=== PATIENT | female | born 1970 | race Caucasian/White ===

== ENCOUNTER → 2017-08-04 | Day surgery (SDC) | payer OTHER ==
[~2017-08-04] VITALS: Ht 167.6 cm; Wt 68.0 kg
[~2017-08-04] MED LIST: BACTRIM DS TAB1 EACH PO; FLOMAX0.4 M1 PO; IBUPROFEN800 M1 PO; LOSARTAN POTASS50 M1 PO; PERCOCET 5-3251 EACH PO; PROMETHAZINE HC25 M3 PO; PYRIDIUM200 M1 PO; ZOFRAN ODT4 M1 SL
--- NOTE | 2017-08-04 08:19 | ED GI/GU/ABDOMINAL COMPLAINT ---
History of Present Illness General Chief Complaint: Abdominal Pain/Flank Pain Stated Complaint: FLANK PAIN, REDUCED URINE OUTPUT Source: patient Exam Limitations: no limitations Vital Signs & Intake/Output Vital Signs & Intake/Output Vital Signs Date Time Temp Pulse Resp B/P B/P Pulse O2 O2 Flow FiO2 Mean Ox Delivery Rate 08/04 1307 98.7 85 16 116/65 100 Room Air 08/04 1049 98.3 62 19 137/68 97 Room Air 08/04 0807 98.2 58 20 169/108 98 Room Air Allergies Coded Allergies: Penicillins (Severe, CAN'T BREATHE 03/21/17) Reconcile Medications Ibuprofen 800 MG TABLET 1 TAB PO TID pain Losartan Potassium 50 MG TABLET 1 TAB PO DAILY HEART (Reported) Ondansetron (Zofran Odt) 4 MG TAB.RAPDIS 1 TAB SL TID nausea Oxycodone HCl/Acetaminophen (Percocet 5-325 MG Tablet) 5 MG-325 MG TABLET 1-2 TAB PO Q6P PRN pain Promethazine HCl 25 MG TABLET 1 TAB PO Q6P PRN nausea Tamsulosin HCl (Flomax) 0.4 MG CAP.ER.24H 1 CAP PO DAILY kindey stone Triage Note: PT TO ED C/O RIGHT FLANK PAIN SINCE YESTERDAY. C/O DECREASED URINARY OUTPUT WITH URINARY URGENCY AND PRESSURE. Triage Nurses Notes Reviewed? yes ? n Is pt currently ? No Onset: Abrupt Duration: hour(s):, better Quality/Severity: moderate, sharpness, severe Location: right flank No Modifying Factors: none HPI: 47-year-old female comes into the emergency room for further evaluation of sudden onset right-sided flank pain that began this morning that woke her up. She's had some pain and cramping in her lower right groin region. She denies any fever chills vomiting. She has history of urinary infections also reports that she knows she has kidney stones but has not had any issues with them. Nothing seems to make the symptoms better. She comes in for further evaluation. Past History Travel History Traveled to [place] past 21 day No Medical History Any Pertinent Medical History? 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 No Review of Systems Review of Systems Constitutional: Reports: no symptoms. EENTM: Reports: no symptoms. Respiratory: Reports: no symptoms. Cardiovascular: Reports: no symptoms. GI: Reports: no symptoms. Genitourinary: Reports: see HPI. Musculoskeletal: Reports: see HPI. Skin: Reports: no symptoms. Neurological/Psychological: Reports: no symptoms. Hematologic/Endocrine: Reports: no symptoms. Immunologic/Allergic: Reports: no symptoms. All Other Systems: Reviewed and Negative Physical Exam Physical Exam General Appearance: well developed/nourished, alert, awake Head: atraumatic, normal appearance Eyes: Bilateral: normal appearance. Ears, Nose, Throat, Mouth: hearing grossly normal, moist mucous membrane Neck: normal inspection Respiratory: normal breath sounds, no respiratory distress Cardiovascular: regular rate/rhythm Gastrointestinal: soft Back: normal inspection Extremities: normal range of motion Neurologic/Psych: awake, alert, oriented x 3, normal gait Skin: intact, normal color Core Measures ACS in differential dx? No Sepsis Present: No Sepsis Focused Exam Completed? No Progress Differential Diagnosis: appendicitis, cholecystitis, diverticulitis, ectopic , kidney stone, ovarian cyst, ovarian torsion, UTI/pyelo Plan of Care: Orders Procedure Date/time Status EKG 08/04 1031 Active URINE 08/04 08 Complete URINALYSIS 08/04 0819 Complete COMPREHENSIVE METABOLIC PANEL 08/04 08 Complete CBC WITHOUT DIFFERENTIAL 08/04 08 Complete Laboratory Tests 08/04/17 0832: Urine Color YEL, Urine Clarity CLEAR, Urine pH 7.0, Ur Specific [place] 1.010, Urine Protein NEG, Urine Ketones NEG, Urine Nitrite NEG, Urine Bilirubin NEG, Urine Urobilinogen 0.2, Ur Leukocyte Esterase NEG, Ur Microscopic SEDIMENT EXAMINED, Urine RBC 3-5, Urine WBC 1-3 H, Ur Epithelial Cells FEW, Urine Bacteria RARE H, Urine Hemoglobin SMALL H, Urine Glucose NEG, Urine Test NEGATIVE 08/04/17 0830: Anion Gap 11, Estimated GFR > 60, BUN/Creatinine Ratio 15.7, Glucose 92, Calcium 9.4, Total Bilirubin 0.9, AST 19, ALT 20, Alkaline Phosphatase 47, Total Protein 7.1, Albumin 4.5, Globulin 2.6, Albumin/Globulin Ratio 1.7, CBC w Diff NO MAN DIFF REQ, RBC 4.59, MCV 86.9, MCH 29.4, MCHC 33.9, RDW 14.2, MPV 7.8, Gran % 66.0, Lymphocytes % 26.9, Monocytes % 4.1, Eosinophils % 2.3, Basophils % 0.7, Absolute Granulocytes 5.3, Absolute Lymphocytes 2.2, Absolute Monocytes 0.3, Absolute Eosinophils 0.2, Absolute Basophils 0.1 Diagnostic Imaging: Viewed by Me: CT Scan. Discussed w/RAD: CT Scan. Radiology Impression: PATIENT: JEZ WRIGHT PRESENT AGE: 47 PATIENT ACCOUNT NO: [id number] : 72 LOCATION: [facility] ORDERING PHYSICIAN: Vance MORALES SERVICE DATE: 08/04/17 EXAM TYPE: CAT - CT ABD & PELVIS W/O IV CONTRAS EXAMINATION: CT ABDOMEN AND PELVIS WITHOUT CONTRAST CLINICAL INFORMATION: Right flank pain. Evaluate for stone. COMPARISON: No relevant prior imaging. TECHNIQUE: Multidetector volumetric imaging was performed from the superior aspect of the liver through the pubic symphysis. Sagittal and coronal reformatted images were obtained on the technologist's workstation. DLP: 274.74 mGy-cm FINDINGS: LUNG BASES: Lung bases are clear. There is no pleural or pericardial effusion. LIVER, GALLBLADDER, AND BILIARY TREE: The unenhanced liver attenuation is homogeneous with no evidence of a discrete hepatic parenchymal mass. The gallbladder is unremarkable with no evidence of radiopaque gallstones, gallbladder wall thickening, or obvious pericholecystic inflammatory changes. PANCREAS: Unremarkable. SPLEEN: Unremarkable. ADRENAL GLANDS: Unremarkable. KIDNEYS AND URETERS: There is a 4.3 mm calculus located within the distal right ureter near the ureterovesicular junction. Moderate associated right hydroureteronephrosis. No additional nonobstructive calculi are visualized within either kidney. There is a hyperdense cyst at the upper pole of the left kidney that measures 8.2 mm in diameter. BLADDER: Unremarkable. GASTROINTESTINAL TRACT: The stomach and small bowel are normal. No evidence of small bowel obstruction. No free intraperitoneal air or fluid. There are numerous diverticula primarily involving the sigmoid colon. No evidence of acute diverticulitis. Normal appendix. ABDOMINAL WALL: No significant hernia is appreciated. LYMPH NODES: No pathologically enlarged mesenteric or retroperitoneal lymph nodes. VASCULAR: The unenhanced abdominal aorta and inferior vena cava are unremarkable. PELVIC VISCERA: There is an anteverted uterus. No worrisome adnexal mass. OSSEOUS STRUCTURES: There is a nondisplaced left L5 pars interarticularis defects. Otherwise no acute osseous finding. No worrisome lytic or blastic osseous lesion. IMPRESSION: There is an obstructive 4.3 mm calculus located within the distal right ureter near the ureterovesicular junction. Moderate right hydroureteronephrosis. No additional nonobstructive calculi are visualized within either kidney. Of note there is a nondisplaced left L5 pars interarticularis defect. DICTATED BY: Oswaldo Brock MD DATE/TIME DICTATED: 08/04/17917 CRNA:TAMARA DATE/TIME TRANSCRIBED:08/04/17917 CONFIDENTIAL, DO NOT COPY WITHOUT APPROPRIATE AUTHORIZATION. <Electronically signed in Other Vendor System> SIGNED BY: Oswaldo Brock MD 08/04/17 0928 Initial ED EKG: none Comments: 08/04/2017 2:49:12 PM Patient is being brought to the operating room for lithotripsy. Departure Departure Disposition: HOME OR SELF CARE Condition: Stable Clinical Impression Primary Impression: Kidney stone on right side Referrals: Jenna Nava MD (PCP/Family) Additional Instructions: Take Percocet, Flomax, ibuprofen, Zofran, and promethazine as prescribed. Follow-up with urologist provided. Rest. Drink plenty of fluids. Return if any fever chills vomiting or any other concerns. Please go over all results of today's visit with your primary care doctor. Contact your primary care doctor to let them know you were here in the emergency room. There may be nonspecific findings which may not be related to your visit today here in the emergency room but may require further evaluation and chronic monitoring by your primary care doctor. If you had a laceration today the chance of foreign body always remains. You should follow-up with your primary care doctor for recheck in 3-5 days for a wound check. If you had an x-ray done there is a chance that a fracture could have been missed on initial read and you should follow-up with your primary care doctor for repeat x-rays if symptoms persist. If your blood pressure was elevated here in the emergency room please have rechecked by jermaine primary care doctor within the next 48. If you were prescribed a narcotic here in the emergency room or any type of controlled substances you're not allowed to drive while taking this medication or operate any type of heavy machinery. Narcotics can make you feel lightheaded dizziness nausea and can cause constipation. 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 Thank you for choosing [facility] emergency room. Please return to the emergency room immediately if you have any other concerns worsening of symptoms. Departure Forms: Customer Survey General Discharge Information Prescriptions: Current Visit Scripts Oxycodone HCl/Acetaminophen (Percocet 5-325 MG Tablet) 1-2 TAB PO Q6P PRN pain #15 TAB Tamsulosin HCl (Flomax) 1 CAP PO DAILY #14 CAP Ibuprofen 1 TAB PO TID #30 TAB Ondansetron (Zofran Odt) 1 TAB SL TID #10 TAB Promethazine HCl 1 TAB PO Q6P PRN nausea #30 TAB OR/GI Note Spoke With: Rubén COHEN,Yahir Treatment Decision: ADRIANAJEZ requires urgent operative management or an emergent procedure that cannot be performed in the Emergency Room setting. Transport To: [facility] Critical Care Note Critical Care Note Critical Care Time: 30-74 min (35)
[2017-08-04 08:49] LABS: ABSOLUTE BASOPHIL COUNT 0.1 /CUMM (0.0-0.2); ABSOLUTE EOSINOPHIL COUNT 0.2 /CUMM (0.0-0.7); ABSOLUTE GRANULOCYTE CT 5.3 /CUMM (1.4-6.5); ABSOLUTE LYMPH COUNT 2.2 /CUMM (1.2-3.4); ABSOLUTE MONOCYTE COUNT 0.3 /CUMM (0.10-0.60); BASOPHIL % 0.7 % (0.0-2.0); EOSINOPHIL % 2.3 % (0-5); HEMATOCRIT 39.9 % (37-47); MEAN CORPUSCULAR HGB 29.4 PG (27.0-31.0); MEAN CORPUSCULAR HGB CONC 33.9 G/DL (33.0-37.0); MEAN CORPUSCULAR VOLUME 86.9 FL (81.0-99.0); MEAN PLATELET VOLUME 7.8 FL (7.4-10.4); PLATELET COUNT 241 /CUMM (130-400); RBC DISTRIBUTION WIDTH 14.2 % (11.5-14.5); RED BLOOD CELL CT 4.59 /CUMM (4.20-5.40)
--- NOTE | 2017-08-04 09:28 | CT SCAN REPORT ---
EXAMINATION: CT ABDOMEN AND PELVIS WITHOUT CONTRAST CLINICAL INFORMATION: Right flank pain. Evaluate for stone. COMPARISON: No relevant prior imaging. TECHNIQUE: Multidetector volumetric imaging was performed from the superior aspect of the liver through the pubic symphysis. Sagittal and coronal reformatted images were obtained on the technologist's workstation. DLP: 274.74 mGy-cm FINDINGS: LUNG BASES: Lung bases are clear. There is no pleural or pericardial effusion. LIVER, GALLBLADDER, AND BILIARY TREE: The unenhanced liver attenuation is homogeneous with no evidence of a discrete hepatic parenchymal mass. The gallbladder is unremarkable with no evidence of radiopaque gallstones, gallbladder wall thickening, or obvious pericholecystic inflammatory changes. PANCREAS: Unremarkable. SPLEEN: Unremarkable. ADRENAL GLANDS: Unremarkable. KIDNEYS AND URETERS: There is a 4.3 mm calculus located within the distal right ureter near the ureterovesicular junction. Moderate associated right hydroureteronephrosis. No additional nonobstructive calculi are visualized within either kidney. There is a hyperdense cyst at the upper pole of the left kidney that measures 8.2 mm in diameter. BLADDER: Unremarkable. GASTROINTESTINAL TRACT: The stomach and small bowel are normal. No evidence of small bowel obstruction. No free intraperitoneal air or fluid. There are numerous diverticula primarily involving the sigmoid colon. No evidence of acute diverticulitis. Normal appendix. ABDOMINAL WALL: No significant hernia is appreciated. LYMPH NODES: No pathologically enlarged mesenteric or retroperitoneal lymph nodes. VASCULAR: The unenhanced abdominal aorta and inferior vena cava are unremarkable. PELVIC VISCERA: There is an anteverted uterus. No worrisome adnexal mass. OSSEOUS STRUCTURES: There is a nondisplaced left L5 pars interarticularis defects. Otherwise no acute osseous finding. No worrisome lytic or blastic osseous lesion. IMPRESSION: There is an obstructive 4.3 mm calculus located within the distal right ureter near the ureterovesicular junction. Moderate right hydroureteronephrosis. No additional nonobstructive calculi are visualized within either kidney. Of note there is a nondisplaced left L5 pars interarticularis defect.
[2017-08-04 16:16] VITALS: BP 145/70
--- NOTE | 2017-08-04 16:44 | Cons- Urology ---
General Information and HPI Consulting Request Date of Consult: 08/04/17 Requested By: MD Chente, [place]=ER Reason for Consult: RIGHT COLIC WITH URETER STONE Source of Information: patient, old records Exam Limitations: no limitations History of Present Illness: 47 YR OLD WITH SEVERE SUDDEN ONSET RIGHT COLIC WITH N/V. HERE FOR RIGHT URETER eswl. Allergies/Medications Allergies: Coded Allergies: Penicillins (Severe, CAN'T BREATHE 03/21/17) Home Med List: Ibuprofen 800 MG TABLET 1 TAB PO TID pain Losartan Potassium 50 MG TABLET 1 TAB PO DAILY HEART (Reported) Ondansetron (Zofran Odt) 4 MG TAB.RAPDIS 1 TAB SL TID nausea Oxycodone HCl/Acetaminophen (Percocet 5-325 MG Tablet) 5 MG-325 MG TABLET 1-2 TAB PO Q6P PRN pain Promethazine HCl 25 MG TABLET 1 TAB PO Q6P PRN nausea Tamsulosin HCl (Flomax) 0.4 MG CAP.ER.24H 1 CAP PO DAILY kindey stone Current Medications: Current Medications Sig/Jose Start time Last Medication Dose Route Stop Time Status Admin Ketorolac 0 .STK-MED ONE 08/04 0834 DC Tromethamine .ROUTE Ketorolac 30 MG ONCE ONE 08/04 0830 DC 08/04 Tromethamine IV 08/04 0831 0845 Morphine Sulfate 0 .STK-MED ONE 08/04 0936 DC .ROUTE Morphine Sulfate 4 MG ONCE ONE 08/04 0930 DC 08/04 IV 08/04 0931 0938 Ondansetron HCl 4 MG ONCE ONE 08/04 0915 DC 08/04 IV 08/04 0916 0904 Ondansetron HCl 0 .STK-MED ONE 08/04 0849 DC .ROUTE Promethazine HCl 0 .STK-MED ONE 08/04 0957 DC .ROUTE Promethazine HCl 12.5 MG ONCE ONE 08/04 0945 DC 08/04 IV 08/04 0946 0957 Sodium Chloride 1,000 ML BOLUS ONE 08/04 1030 DC 08/04 IV 08/04 1129 1024 Sodium Chloride 1,000 ML BOLUS ONE 08/04 0830 DC 08/04 IV 08/04 0929 0845 Past History Medical History Neurological: migraine EENT: NONE Cardiovascular: hypertension Respiratory: NONE Gastrointestinal: NONE Hepatic: NONE Renal: NONE Musculoskeletal: NONE Psychiatric: NONE Endocrine: NONE Blood Disorders: NONE 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 no Review of Systems Review of Systems Constitutional: Reports: see HPI. EENTM: Denies: no symptoms. Cardiovascular: Denies: no symptoms. Respiratory: Denies: no symptoms. GI: Reports: abdominal pain, bloating. Genitourinary: Denies: no symptoms. Musculoskeletal: Denies: no symptoms. Skin: Denies: no symptoms. Exam & Diagnostic Data Vital Signs and I&O Vital Signs Date Time Temp Pulse Resp B/P B/P Pulse O2 O2 Flow FiO2 Mean Ox Delivery Rate 08/04 1616 99.1 49 18 145/70 100 Room Air 08/04 1526 98.7 56 16 123/70 100 Room Air 08/04 1307 98.7 85 16 116/65 100 Room Air 08/04 1049 98.3 62 19 137/68 97 Room Air 08/04 0807 98.2 58 20 169/108 98 Room Air Intake & Output 08/04 1600 08/04 0800 08/04 0000 08/03 1600 08/03 0800 08/03 0000 Intake Total 2000 Output Total Balance 2000 Intake, IV 2000 Patient 150 lb Weight Weight Estimated Measurement Method Physical Exam General Appearance: well developed/nourished, moderate distress Head: atraumatic Eyes: Bilateral: normal appearance. Neck: normal inspection Respiratory: normal breath sounds Cardiovascular: regular rate/rhythm Gastrointestinal: normal bowel sounds Back: CVA tenderness (R) Extremities: normal inspection Skin: intact, normal color, warm/dry Last 24 Hours of Labs: Laboratory Tests 08/04 08/04 0832 0830 Chemistry Sodium (137 - 145 mmol/L) 138 Potassium (3.5 - 5.1 mmol/L) 4.1 Chloride (98 - 107 mmol/L) 103 Carbon Dioxide (22 - 30 mmol/L) 24 Anion Gap (5 - 16) 11 BUN (7 - 17 mg/dL) 11 Creatinine (0.5 - 1.0 mg/dL) 0.7 Estimated GFR (>60 ml/min) > 60 BUN/Creatinine Ratio (7 - 25 %) 15.7 Glucose (65 - 99 mg/dL) 92 Calcium (8.4 - 10.2 mg/dL) 9.4 Total Bilirubin (0.2 - 1.3 mg/dL) 0.9 AST (14 - 36 U/L) 19 ALT (9 - 52 U/L) 20 Alkaline Phosphatase (<127 U/L) 47 Total Protein (6.3 - 8.2 g/dL) 7.1 Albumin (3.5 - 5.0 g/dL) 4.5 Globulin (1.9 - 4.2 gm/dL) 2.6 Albumin/Globulin Ratio (1.1 - 2.2 %) 1.7 Hematology CBC w Diff NO MAN DIFF REQ WBC (4.8 - 10.8 /CUMM) 8.0 RBC (4.20 - 5.40 /CUMM) 4.59 Hgb (12.0 - 16.0 G/DL) 13.5 Hct (37 - 47 %) 39.9 MCV (81.0 - 99.0 FL) 86.9 MCH (27.0 - 31.0 PG) 29.4 MCHC (33.0 - 37.0 G/DL) 33.9 RDW (11.5 - 14.5 %) 14.2 Plt Count (130 - 400 /CUMM) 241 MPV (7.4 - 10.4 FL) 7.8 Gran % (42.2 - 75.2 %) 66.0 Lymphocytes % (20.5 - 51.1 %) 26.9 Monocytes % (1.7 - 9.3 %) 4.1 Eosinophils % (0 - 5 %) 2.3 Basophils % (0.0 - 2.0 %) 0.7 Absolute Granulocytes (1.4 - 6.5 /CUMM) 5.3 Absolute Lymphocytes (1.2 - 3.4 /CUMM) 2.2 Absolute Monocytes (0.10 - 0.60 /CUMM) 0.3 Absolute Eosinophils (0.0 - 0.7 /CUMM) 0.2 Absolute Basophils (0.0 - 0.2 /CUMM) 0.1 Urines Urine Color (YEL,AMB,STR) YEL Urine Clarity (CLEAR) CLEAR Urine pH (5.0 - 8.0) 7.0 Ur Specific [place] (1.001 - 1.035) 1.010 Urine Protein (NEG,<30 MG/DL) NEG Urine Ketones (NEG) NEG Urine Nitrite (NEG) NEG Urine Bilirubin (NEG) NEG Urine Urobilinogen (0.1 - 1.0 EU/dl) 0.2 Ur Leukocyte Esterase (NEG) NEG Ur Microscopic SEDIMENT EXAMINED Urine RBC (0 - 5 /HPF) 3-5 Urine WBC (0 - 2 /HPF) 1-3 H Ur Epithelial Cells (NONE,FEW) FEW Urine Bacteria (NEG/NONE) RARE H Urine Hemoglobin (NEG) SMALL H Urine Glucose (N MG/DL) NEG Urine Test NEGATIVE Imaging Results: PATIENT: JEZ WRIGHT PRESENT AGE: 47 PATIENT ACCOUNT NO: [id number] : 72 LOCATION: [facility] ORDERING PHYSICIAN: Vance MORALES SERVICE DATE: 08/04/17 EXAM TYPE: CAT - CT ABD & PELVIS W/O IV CONTRAS EXAMINATION: CT ABDOMEN AND PELVIS WITHOUT CONTRAST CLINICAL INFORMATION: Right flank pain. Evaluate for stone. COMPARISON: No relevant prior imaging. TECHNIQUE: Multidetector volumetric imaging was performed from the superior aspect of the liver through the pubic symphysis. Sagittal and coronal reformatted images were obtained on the technologist's workstation. DLP: 274.74 mGy-cm FINDINGS: LUNG BASES: Lung bases are clear. There is no pleural or pericardial effusion. LIVER, GALLBLADDER, AND BILIARY TREE: The unenhanced liver attenuation is homogeneous with no evidence of a discrete hepatic parenchymal mass. The gallbladder is unremarkable with no evidence of radiopaque gallstones, gallbladder wall thickening, or obvious pericholecystic inflammatory changes. PANCREAS: Unremarkable. SPLEEN: Unremarkable. ADRENAL GLANDS: Unremarkable. KIDNEYS AND URETERS: There is a 4.3 mm calculus located within the distal right ureter near the ureterovesicular junction. Moderate associated right hydroureteronephrosis. No additional nonobstructive calculi are visualized within either kidney. There is a hyperdense cyst at the upper pole of the left kidney that measures 8.2 mm in diameter. BLADDER: Unremarkable. GASTROINTESTINAL TRACT: The stomach and small bowel are normal. No evidence of small bowel obstruction. No free intraperitoneal air or fluid. There are numerous diverticula primarily involving the sigmoid colon. No evidence of acute diverticulitis. Normal appendix. ABDOMINAL WALL: No significant hernia is appreciated. LYMPH NODES: No pathologically enlarged mesenteric or retroperitoneal lymph nodes. VASCULAR: The unenhanced abdominal aorta and inferior vena cava are unremarkable. PELVIC VISCERA: There is an anteverted uterus. No worrisome adnexal mass. OSSEOUS STRUCTURES: There is a nondisplaced left L5 pars interarticularis defects. Otherwise no acute osseous finding. No worrisome lytic or blastic osseous lesion. IMPRESSION: There is an obstructive 4.3 mm calculus located within the distal right ureter near the ureterovesicular junction. Moderate right hydroureteronephrosis. No additional nonobstructive calculi are visualized within either kidney. Of note there is a nondisplaced left L5 pars interarticularis defect. DICTATED BY: Oswaldo Brock MD DATE/TIME DICTATED:08/04/17917 RESEARCH/PROGRAM DIRECTOR:TAMARA DATE/TIME TRANSCRIBED:08/04/17917 CONFIDENTIAL, DO NOT COPY WITHOUT APPROPRIATE AUTHORIZATION. <Electronically signed in Other Vendor System> SIGNED BY: Oswaldo Brock MD 08/04 0928 Assessment/Plan Assessment/Plan RIGHTUVJ STONE WITH SEVERE COLIC FOR RIGHT ESWL. Copies To: Yahir Montana MD Consult Acknowledgment - Thank you for your consult request. 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
--- NOTE | 2017-08-04 17:49 | Operative Report ---
Operative/Inv Procedure Report Surgery Date: 08/04/17 Name of Procedure: right UVJ stone ESWL, fluoroscopy Pre-Operative Diagnosis: right severe colic with 5mm UVJ stone and hydro. Post-Operative Diagnosis: same Estimated Blood Loss: none Surgeon/Loader Helper: MD Rubén, Yahir-urology Anesthesia: moderate sedation Specimens: none Complications: none Operative/Procedure Note Note: The patient was taken to the operating room and placed on the ESWL table in supine position. With the patient awake, timeout was performed to cofirm correct identity, procedure, laterality, anesthesia, and other pertinent caridad- operative information. The patient was positioned over the ESWL table cut-out, overlying the dome of the shockwave generator, with on his right flank. C-arm fluroscopy, as well as renal US, was used to locate the stone, and evaluate the RIGHT kidney. The stone was visible on fluoroscopy at the right distal-ureter (UVJ) measuring approximately 5 mm. Renal US confirmed mild hydronephrosis. No other stone/ tumor was visualized in the right kidney. After adequate anesthesia, the right ureter stone's position was optimized for Shockwave lithotrypsy using fluoroscopy in AP and oblique views. The E.S.W.L. was initiated at low power levels x 200 shocks. After noting the patient's tolerance to the shockwaves, the shock wave power level was quickly maximized. Toward the end of the procedure, the composition of the stone had changed significantly, indicating the pulverization of the ureter stone. A total of 3000 shockwaves were delivered to the stone in order to achieve adequate lithotrypsy. The patient tolerated both the procedure well, was awakened, and taken to recovery in satisfactory condition via stretcher. The pt will be dischared home with pain meds, diet orders, and intructions to catch fragments with straining the urine. The patient is to have follow-up renal ultrasound and KUB in 1-2 weeks, prior to follow-up visit in my office. Discharge Disposition: Same Day Admissions CC: Rubén COHEN,Yahir
== END ==
LOC: ERH 07:58 → STS 16:17
PROVIDERS: Physician Assistant Medical
DX: N20.1 Calculus of ureter (principal); N13.30 Unspecified hydronephrosis; I10 Essential (primary) hypertension
CPT/HCPCS: 74176; 81001; 81025; 93005; 93010; 96361; 96374; 96375; J1885; J2250; J2405; J2550; J3010